=== PATIENT | female | born 1960 | race Two or more races ===

== ENCOUNTER 2023-11-11 14:16 | Emergency (ER) | payer OTHER, SELFPAY ==
--- NOTE | ~2023-11-11 | CT_ITS ---
EXAMINATION: CT ABDOMEN AND PELVIS WITHOUT CONTRAST CLINICAL INFORMATION: Abdominal pain, distention, diarrhea COMPARISON: None available. TECHNIQUE: Multidetector volumetric imaging was performed from the superior aspect of the liver through the pubic symphysis. Sagittal and coronal reformatted images were obtained on the technologist's workstation. This CT examination was performed using dose optimization techniques as appropriate, variously including the following: *Automated exposure control *Adjustment of mA and/or kV according to patient size (this includes techniques or standardized protocols for targeted exams where dose is matched to indication/reason for exam; i.e. extremities or head) *Use of iterative reconstruction technique DLP: 743 mGy-cm FINDINGS: LUNG BASES: The visualized lung bases are unremarkable. LIVER, GALLBLADDER, AND BILIARY TREE: The liver is normal in size, shape, and attenuation. No focal hepatic lesion or biliary ductal dilatation is present. Status post cholecystectomy PANCREAS: Unremarkable. SPLEEN: Unremarkable. ADRENAL GLANDS: Unremarkable. KIDNEYS AND URETERS: The kidneys are normal in size, shape, and attenuation. No hydronephrosis, hydroureter, or calculi seen. No perinephric stranding. BLADDER: Unremarkable. GASTROINTESTINAL TRACT: The small bowel are unremarkable. The appendix is unremarkable. Diverticula seen within the sigmoid colon without evidence of acute diverticulitis ABDOMINAL WALL: No significant hernia is appreciated. LYMPH NODES: Normal. VASCULAR: Aorta is normal in caliber. Scattered atherosclerotic wall calcifications. PELVIC VISCERA: Unremarkable. OSSEOUS STRUCTURES: There are mild superior endplate compression deformities seen of T12, L2 and bodies which appear chronic in nature CT/CT abdomen pelvis wo IV con IMPRESSION: 1. No acute process. 2. Diverticulosis. 3. Status post cholecystectomy.
[2023-11-11 14:21] VITALS: BP 110/51; PULSE 84; RESP 18; TEMP 37.4; O2SAT 94; BMI 23.0
--- NOTE | 2023-11-11 14:30 | ED_ITS ---
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 Patient reports nausea, loose stools, bright red blood per rectum and diffuse abdominal pain x 1.5 weeks. Patient reports nausea without vomiting. Admits to loose stools and bright red blood with every bowel movement. Blood is evident within the toilet bowl and on the toilet paper. Denies pain from rectum. Denies history of hemorrhoids. Patient admits that she was evaluated for these symptoms at [facility] 1 week ago. She can not recall her diagnosis however was discharged home with ciprofloxacin and metronidazole which she has been taking as prescribed. No missed doses. She was also prescribed omeprazole and Zofran. She presents today with continued symptoms. Admits to associated generalized weakness. Her last bowel movement was yesterday. Patient also states I have issues with my heart . Requesting cardiac workup. She can not recall what she has been diagnosed with in the past. She currently denies dizziness, chest pain, palpitations, shortness of breath, calf pain/swelling. Additionally endorses chronic arthritis in her knees which makes it difficult for her to ambulate. She reports her primary care provider told me I shouldn't be walking . Denies numbness/tingling of the LEs. Denies injury or trauma. orthopedic dentist utilized throughout visit to communicate with patient. Related Data Allergies Allergy/AdvReac Type Severity Reaction Status Date / Time Penicillins Allergy Unknown Verified 11/11/23 14:25 Review of Systems 2 Review of Systems: Constitutional: No fever, chills, fatigue, night sweats, weight changes ENT/Mouth: No ear pain, hearing loss, nasal congestion, sinus pain, rhinorrhea, sore throat Eyes: No eye pain, swelling, redness, vision changes, discharge Cardio: No chest pain, palpitations, EVANGELISTA, orthopnea, peripheral edema Pulm: No SOB, cough, sputum, wheezing, dyspnea, hemoptysis GI: No nausea, vomiting, hematemesis, constipation, hematochezia, melena, + abdominal pain, +BRBPR, +diarrhea : No irregular bleeding, dysuria, frequency, urgency, hesitancy, hematuria, flank pain, urinary flow changes, urinary incontinence or retention MSK: No back pain, neck pain, joint pain, myalgias Skin: No lesions, rashes Neuro: No weakness, numbness, paresthesias, LOC, dizziness, headache Psych: No anxiety/panic, depression, SI/HI, AH/VH All other systems reviewed and are negative. [facility] Past Medical History Attestation statement: The following information was validated with the patient. Source: old records reviewed and nursing notes reviewed Social History Social History Smoked in Last 30 Days: No Use of substances other than those prescribed or required for medical reasons: No Advance Directives: No Advance Directives Information Provided: No Physical Exam ED Vital Signs: Vital Signs - 24 hr 11/11/23 14:21 11/11/23 17:31 11/11/23 21:01 Temperature 99.3 F 98.6 F 98.1 F Pulse Rate 84 77 71 Respiratory Rate 18 14 20 Blood Pressure 110/51 L 117/49 L 117/51 L Pulse Oximetry 94 97 100 Oxygen Delivery Method Room Air Room Air Room Air BMI result Body Mass Index 23.0 Vital signs stable, afebrile. Const Other: Lying on exam bed comfortably General: cooperative, healthy appearing, comfortable and no acute distress Orientation/consciousness: patient oriented x3 Limitations: no limitations [facility] Head: Yes normal to inspection, Yes No palpable skull fracture present, Yes normocephalic and Yes atraumatic Eyes General: appearance normal, both eyes and all related structures Neck Neck: Yes normal visual inspection, Yes full ROM and Yes no lymphadenopathy Resp Effort & Inspection: normal respiratory effort and able to speak in complete sentences Auscultation: clear to auscultation bilaterally Cardio Rate: regular rate Rhythm: regular rhythm GI Other: Rectal exam performed. 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 Normal rectal sphincter tone. Three external hemorrhoids noted. no evidence of thrombosis. no active bleeding. no palpable internal hemorrhoids. No palpable stool within the rectal vault. Abdomen is soft, slightly distended, nontender to palpation, no rebound tenderness or guarding. Normoactive bowel sounds General: Yes no CVA tenderness Back/Spine/Pelvis Back: no CVA tenderness Skin General skin exam: no rashes or lesions noted Neuro General: patient oriented x3 Course Course Course Narrative: RME performed by Sherley Rollins PA-C. Patient is a 63 year old assigned female at presenting to the emergency department with weakness, arthritis, and blood in her stools. Seen at [facility]. Detailed physical exam and review of systems are deferred to the fish and game warden. Labs ordered. Patient placed back in the waiting room pending room availability and results. Reevaluation(s) Reevaluation #1: 7305-- CBC without leukocytosis or left shift. no anemia. h&h stable. no concern for acute blood loss. chemistry without acute electrolyte abnormality requiring intervention. BUN 26, creatinine wnl. 1L IVF ordered. random glucose 144. AST elevated, all other liver enzymes wnl. bili wnl. troponin undetectable. EKG showing normal sinus rhythm with a rate of 86 beats per minute, QT 348, QTC 416, no acute ischemic changes or ST elevations. lipase wnl, unlikely pancreatitis. > waiting on records from [facility] for further information regarding patient's previous visit. > CT abdomen/pelvis pending 2099-- CT abdomen without acute intra-abdominal pathology. There was evidence of diverticulosis without diverticulitis. Status post cholecystectomy. > Patient refusing to give stool and urine sample and is requesting to be discharged home. i explained to patient that with her recent course of antibiotics, I have concern for possible cdiff infection and would prefer she leave us a stool sample. patient declining and would like to be discharged home. advised to return with any new or worsening symptoms. her work up/ exam is otherwise reassuring. advised to continue all medications prescribed. Patient has remained stable throughout ED visit today. Discussed worrisome signs and symptoms and when to return to the ED. All questions answered at this time. Patient is stable for discharge. Medications Administered Discontinued Medications Generic Name Dose Route Start Last Admin Trade Name Freq PRN Reason Stop Dose Admin Sodium Chloride 1,000 mls @ 999 mls/hr 11/11/23 17:30 11/11/23 19:48 Ns IV 11/11/23 18:30 Infused .Q1H1M PUMA Infusion Ondansetron HCl 4 mg 11/11/23 17:25 11/11/23 18:03 Ondansetron Hcl 4 Mg/2 Ml Vial IVPUSH 11/11/23 17:26 4 mg ONCE ONE Administration Medical Decision Making Medical Decision Making [facility] Narrative: 63 year old female with pmhx significant for chronic arthritis, Alzheimer's presents to the ED today with her with multiple complaints. Vital signs stable, afebrile. She is nontoxic appearing no acute distress. Lying comfortably on exam bed. Abdomen is soft, slightly distended, nontender to palpation, no rebound tenderness or guarding. Normoactive bowel sounds x4. No CVAT bilaterally. On rectal exam, there is normal rectal sphincter tone. Three external hemorrhoids noted. no evidence of thrombosis. no active bleeding. no palpable internal hemorrhoids. No palpable stool within the rectal vault. Differential diagnosis includes external vs internal hemorrhoids, gastroenteritis, diverticulosis, diverticulitis, IBS. unlikely appendicitis, cholecystitis, SBO, ischemic bowel, acute abdomen. Plan for labs, ct, ivf, ua, disposition. Differential Diagnosis Differential Diagnoses: The differential diagnosis associated with the presentation includes as above. Admission/Observation Consideration of admission/observation: Escalation of care including admission/observation considered Admission considered on presentation Lab Data [facility] Lab Attestation statement: I reviewed the patient's lab results. As above 11/11/23 14:33 11/11/23 14:33 Labs: Lab Results 11/11/23 11/11/23 11/11/23 Range/Units 14:33 14:36 15:33 WBC 5.3 (4.8-10.8) X10*3/uL RBC 3.99 L (4.20-5.50) X10*6/uL Hgb 12.7 (12.0-16.0) g/dl Hct 37.3 (37.0-47.0) % MCV 93.5 (80.0-98.0) fL MCH 31.8 (27.0-33.0) pg MCHC 34.0 (31.0-35.0) g/dl RDW 12.8 (11.0-16.0) % Plt Count 265 (160-400) X10*3/uL MPV 10.9 (9.4-12.3) fL Immature Gran % (Auto) 0.4 (0.0-0.4) % Neut % (Auto) 69.8 (45-73) % Lymph % (Auto) 18.9 L (20-40) % Ada % (Auto) 8.4 (2-11) % Eos % (Auto) 2.1 (0-4) % Baso % (Auto) 0.4 (0-2) % Lymph # (Auto) 1.0 L (1.2-4.9) X10*3/uL Ada # (Auto) 0.5 (0.1-1.2) X10*3/uL Eos # (Auto) 0.1 (0.0-0.4) X10*3/uL Baso # (Auto) 0.0 (0.0-0.2) X10*3/uL Abs Immat Gran (auto) 0.02 (0.00-0.03) X10*3/uL Absolute Neuts (auto) 3.7 (2.0-8.3) x10*3/uL Absolute Nucleated RBC 0.000 (0.0-0.012) X10*3/uL Nucleated RBC % (auto) 0.0 (0.0-0.2) /100WBC PT 11.7 (11.1-13.3) SEC INR 1.0 (0.9-1.1) APTT 27.4 (26.0-36.8) SEC Sodium 140 (135-145) mmol/L Potassium 4.4 (3.3-5.1) mmol/L Chloride 108 (96-108) mmol/L Carbon Dioxide 20 L (22-29) mmol/L Anion Gap 16 (12-20) BUN 26 H (9-16) mg/dL Creatinine 0.76 (0.5-1.4) mg/dL Estim Creat Clear Calc 61.0 Estimated GFR > 60 Random Glucose 144 H (60-115) mg/dL Calcium 9.5 (8.4-10.2) mg/dL Magnesium 2.2 (1.6-2.6) mg/dL Total Bilirubin 0.2 (0.0-1.0) mg/dL AST 34 H (5-31) U/L ALT 23 (0-31) U/L Alkaline Phosphatase 117 (39-117) U/L Troponin I High Sens < 2.7 (<3.5-17.0) ng/L Total Protein 6.9 (6.5-8.0) g/dL Albumin 4.1 (3.5-5.0) g/dL Lipase 13 (8-78) U/L Influenza Type A (PCR) NEGATIVE (Negative) Influenza Type B (PCR) NEGATIVE (Negative) RSV RNA Qual (PCR) NEGATIVE (Negative) SARS-CoV-2 RNA (RT-PCR) NEGATIVE (Negative) Independent Interpretation I performed an independent interpretation of an: EKG and CT Scan Interpretation: EKG showing normal sinus rhythm with a rate of 86 beats per minute, QT 348, QTC 416, no acute ischemic changes or ST elevations CT abdomen/pelvis without thickening of the bowel wall, agree with radiologist's interpretation Radiology Impression Discussion of test interpretation with radiology: I have reviewed the radiologist's reading. Radiologist Impression: EXAMINATION: CT ABDOMEN AND PELVIS WITHOUT CONTRAST CLINICAL INFORMATION: Abdominal pain, distention, diarrhea COMPARISON: None available. TECHNIQUE: Multidetector volumetric imaging was performed from the superior aspect of the liver through the pubic symphysis. Sagittal and coronal reformatted images were obtained on the technologist's workstation. This CT examination was performed using dose optimization techniques as appropriate, variously including the following: *Automated exposure control *Adjustment of mA and/or kV according to patient size (this includes techniques or standardized protocols for targeted exams where dose is matched to indication/reason for exam; i.e. extremities or head) *Use of iterative reconstruction technique DLP: 743 mGy-cm FINDINGS: LUNG BASES: The visualized lung bases are unremarkable. LIVER, GALLBLADDER, AND BILIARY TREE: The liver is normal in size, shape, and attenuation. No focal hepatic lesion or biliary ductal dilatation is present. Status post cholecystectomy PANCREAS: Unremarkable. SPLEEN: Unremarkable. ADRENAL GLANDS: Unremarkable. KIDNEYS AND URETERS: The kidneys are normal in size, shape, and attenuation. No hydronephrosis, hydroureter, or calculi seen. No perinephric stranding. BLADDER: Unremarkable. GASTROINTESTINAL TRACT: The small bowel are unremarkable. The appendix is unremarkable. Diverticula seen within the sigmoid colon without evidence of acute diverticulitis ABDOMINAL WALL: No significant hernia is appreciated. LYMPH NODES: Normal. VASCULAR: Aorta is normal in caliber. Scattered atherosclerotic wall calcifications. PELVIC VISCERA: Unremarkable. OSSEOUS STRUCTURES: There are mild superior endplate compression deformities seen of T12, L2 and bodies which appear chronic in nature CT/CT abdomen pelvis wo IV con IMPRESSION: 1. No acute process. 2. Diverticulosis. 3. Status post cholecystectomy. Independent Historian Clinical information obtained from an independent historian. History obtained from or confirmed by: Spouse () Prescription Management I considered prescription management with: Pain Medication and Other (zofran) Social Determinants Patient?s care significantly limited by Social Determinants of Health including: Other Social Determinant of Health Critical Care Time Critical Care Time Critical Care Time: No Discharge Plan Discharge Clinical Impression: Abdominal pain, Diverticulosis, External hemorrhoids Patient Disposition: Home, Self-Care Instructions: Diverticulosis (ED), Abdominal Pain (ED) Additional Instructions: Your blood work today is reassuring. Your cardiac enzyme is normal. You tested negative for COVID, flu, RSV. The CT scan of your abdomen/pelvis does not reveal any acute abnormality. You are requesting to leave the ED without giving a stool sample. Continue all medications as prescribed. Return with new or worsening symptoms. In the case of an emergency call 911. Referrals: [facility] [Provider Group] [facility] [Provider Group] Interventions: ED Discharge Assessment Last Done: 11/11/23 21:01 Discharge Date/Time: 11/11/23 21:18 Print Language: Polish
--- NOTE | 2023-11-11 14:31 | ECG_ITS ---
Test Reason : WEAKNESS Blood Pressure : / mmHG Vent. Rate : 086 BPM Atrial Rate : 086 BPM P-R Int : 132 ms QRS Dur : 088 ms QT Int : 348 ms P-R-T Axes : 015 -06 033 degrees QTc Int : 416 ms Normal sinus rhythm Normal ECG No previous ECGs available Referred By: Sherley Rollins Electronically Signed By:FLORI WAYNE MD
[2023-11-11 14:50] LABS: MANUAL DIFF FLAG NO
[2023-11-11 14:52] LABS: Basophils Percent Auto 0.4 % (0-2); Eosinophils Absolute Auto 0.1 X10*3/uL (0.0-0.4); Eosinophils Percent Auto 2.1 % (0-4); Hematocrit 37.3 % (37.0-47.0); Hemoglobin 12.7 g/dl (12.0-16.0); Imm Gran Abs Auto 0.02 X10*3/uL (0.00-0.03); Imm Gran Pct Auto 0.4 % (0.0-0.4); Lymphocytes Percent Auto 18.9 % (20-40); Mean Corpuscular Hemoglobin 31.8 pg (27.0-33.0); Mean Corpuscular Volume 93.5 fL (80.0-98.0); Mean Platelet Volume 10.9 fL (9.4-12.3); Monocytes Absolute Auto 0.5 X10*3/uL (0.1-1.2); Monocytes Percent Auto 8.4 % (2-11); Neutrophils Absolute Auto 3.7 x10*3/uL (2.0-8.3); Neutrophils Percent Auto 69.8 % (45-73); Platelet Count 265 X10*3/uL (160-400); Red Blood Count 3.99 X10*6/uL (4.20-5.50); Red Cell Distribution Width 12.8 % (11.0-16.0); White Blood Count 5.3 X10*3/uL (4.8-10.8)
[2023-11-11 15:26] LABS: Alanine Aminotransferase 23 U/L (0-31); Albumin Level 4.1 g/dL (3.5-5.0); Alkaline Phosphatase 117 U/L (39-117); Anion Gap 16 (12-20); Aspartate Amino Transferase 34 U/L (5-31); Bilirubin Total 0.2 mg/dL (0.0-1.0); Blood Urea Nitrogen 26 mg/dL (9-16); Calcium 9.5 mg/dL (8.4-10.2); Carbon Dioxide 20 mmol/L (22-29); Chloride 108 mmol/L (96-108); Estimated Glomerular Filt Rate > 60; Glucose Random 144 mg/dL (60-115); Magnesium 2.2 mg/dL (1.6-2.6); Potassium 4.4 mmol/L (3.3-5.1); Sodium 140 mmol/L (135-145); Total Protein 6.9 g/dL (6.5-8.0)
[2023-11-11 15:35] LABS: Influenza A PCR NEGATIVE (Negative); Influenza B PCR NEGATIVE (Negative); Resp Syncy Virus RNA Qual PCR NEGATIVE (Negative); SARS COV2 PCR INHOUSE NEGATIVE (Negative)
[2023-11-11 15:44] LABS: Prothrombin Time 11.7 SEC (11.1-13.3)
[2023-11-11 15:47] LABS: Partial Thromboplastin Time 27.4 SEC (26.0-36.8)
[2023-11-11 16:12] LABS: Troponin-I High Sensitivity < 2.7 ng/L (<3.5-17.0)
[2023-11-11 17:31] VITALS: BP 117/49; PULSE 77; RESP 14; TEMP 37; O2SAT 97
[2023-11-11 17:42] LABS: Lipase 13 U/L (8-78)
[2023-11-11] MEDS: ondansetron HCL 4 MG/2 ML VIAL IVPUSH (18:03)
[2023-11-11] MEDS: 0.9 % Sodium Chloride 1,000 ML 999 ML IV (18:04)
[2023-11-11 21:01] VITALS: BP 117/51; PULSE 71; RESP 20; TEMP 36.7; O2SAT 100
== END 2023-11-11 21:18 | disposition home or self-care (01) ==
PROVIDERS: Physician Assistant Medical; Emergency Provider Emergency Medicine
DX: K57.30 Diverticulosis of large intestine without perforation or abscess without bleeding (principal); K64.4 Residual hemorrhoidal skin tags; R10.9 Unspecified abdominal pain; Z03.818 Encounter for observation for suspected exposure to other biological agents ruled out; R53.1 Weakness; R11.0 Nausea
CPT/HCPCS: 0241U; 36415; 74176; 80053; 83690; 83735; 84484; 85025; 85610; 85730; 93005; 96361; 96374; 99284; 99285; J2405

== ENCOUNTER → 2023-11-11 14:31 | Outpatient (BNV) | payer OTHER, SELFPAY | PROVIDERS: Emergency Provider Emergency Medicine; Visit Provider Internal Medicine Cardiovascular Disease | DX: R53.1 Weakness (principal) | CPT/HCPCS: 93010 ==